=== PATIENT | female | born 1980 | race Caucasian/White ===

== ENCOUNTER 2016-08-01 19:30 | Emergency (ER) | payer OTHER ==
[~2016-08-01] VITALS: Ht 154.9 cm; Wt 51.0 kg
[~2016-08-01 19:30] MED LIST: HYDR-3533 PO; MOTR200T PO; TRAM50 PO
[2016-08-01 19:31] VITALS: BP 155/80; PULSE 88; RESP 16; TEMP 98; O2SAT 99
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
[2016-08-01] MEDS ORDERED: ZOFR4TAB PO (23:53)
[2016-08-24] MEDS ORDERED: IBUP-232 PO (11:52)
[2016-08-24] MEDS ORDERED: TRAM50TA PO (11:52)
[2016-08-24] MEDS ORDERED: ONE-TAB PO (11:53)
[2016-08-24] MEDS ORDERED: DESOTAB7 PO (11:56)
[2016-08-27] MEDS ORDERED: HYDR-3533 PO (10:05)
[2016-10-30] MEDS ORDERED: IBUP-232 PO (10:31)
== END 2016-08-02 00:07 | disposition home or self-care (01) ==
LOC: NEPB 19:30
DX: S16.1XXA Strain of muscle, fascia and tendon at neck level, initial encounter (principal); S39.012A Strain of muscle, fascia and tendon of lower back, initial encounter; E04.2 Nontoxic multinodular goiter; M50.20 Other cervical disc displacement, unspecified cervical region; V43.52XA Car driver injured in collision with other type car in traffic accident, initial encounter
CPT/HCPCS: 72125

== ENCOUNTER → 2016-08-24 | Outpatient (CLI) | payer OTHER ==
[~2016-08-24] MED LIST changes: +DESOTAB7 PO; +HYDR-3583 PO; +IBUP-232 PO; +ONE-TAB PO; +TRAM50TA PO; +ZOFR4TAB PO
[2016-08-24 12:46] LABS: AUTOMATED NEUTROPHIL # 3.9 TH/MM3 (1.8-7.7); BASOPHIL % 0.5 % (0.0-2.0); EOSINOPHIL # 0.1 TH/MM3 (0-0.4); EOSINOPHIL % 2.3 % (0.0-4.0); HEMATOCRIT 40.2 % (35.0-46.0); HEMO FLAGS DIFF FINAL; LYMPH % 22.3 % (9.0-44.0); LYMPHOCYTE # 1.3 TH/MM3 (1.0-4.8); MEAN CELL VOLUME 88.5 FL (80.0-100.0); MEAN CORPUSCULAR HEMOGLOBIN 29.4 PG (27.0-34.0); MEAN CORPUSCULAR HGB CONC 33.2 % (32.0-36.0); MONO % 5.6 % (0.0-8.0); NEUT % 69.3 % (16.0-70.0); PLATELET COUNT 183 TH/MM3 (150-450); RED BLOOD COUNT 4.54 MIL/MM3 (4.00-5.30); WHITE BLOOD COUNT 5.6 TH/MM3 (4.0-11.0)
[2016-08-24 12:55] LABS: APTT (PATIENT) 27.6 SEC (24.3-30.1); INTERNATIONAL NORMALIZED RATIO 0.9 RATIO; PROTHROMBIN TIME - PATIENT 9.7 SEC (9.8-11.6)
[2016-08-24 13:05] LABS: BACTERIA, URINE RARE /hpf; BLOOD, URINE TRACE (NEG); COMMENT (UR) CULT NOT INDICATED; CULTURE IF INDICATED CULT NOT INDICATED; GLUCOSE,URINE NEG (NEG); KETONE, URINE NEG (NEG); NITRITE,URINE NEG (NEG); SQUAMOUS EPITHELIAL CELL URINE 3 /hpf (0-5); URINE COLOR YELLOW (YELLW/STRAW)
[2016-08-24 13:17] LABS: ANION GAP 7 MEQ/L (5-15); AST (GOT) 13 U/L (15-37); BICARBONATE 29.1 MEQ/L (21.0-32.0); BLOOD UREA NITROGEN 15 MG/DL (7-18); CHLORIDE 102 MEQ/L (98-107); GLOMERULAR FILTRATION RATE 100 ML/MIN (>89); GLUCOSE,FASTING 73 MG/DL (74-99); POTASSIUM 3.9 MEQ/L (3.5-5.1); SODIUM (NA) 138 MEQ/L (136-145)
[2016-08-24 13:20] LABS: ALKALINE PHOSPHATASE 55 U/L (45-117); ALT (GPT) 17 U/L (10-53); TOTAL BILIRUBIN ADULT 0.4 MG/DL (0.2-1.0)
--- NOTE | 2016-08-24 13:33 | RADRPT ---
EXAM DATE/TIME: 08/24/2016 12:42 [facility] COMPARISON: No previous studies available for comparison. INDICATIONS : Evaluate for pneumonia, pneumothorax, or communicable disease. Pre-op, cervical spine fusion. MEDICAL HISTORY : None. SURGICAL HISTORY : None. ENCOUNTER: Initial ACUITY: 1 day PAIN SCORE: 0/10 LOCATION: Bilateral chest FINDINGS: PA and lateral views of the chest demonstrate the lungs to be symmetrically aerated without evidence of mass, infiltrate or effusion. The cardiomediastinal contours are unremarkable. Osseous structure s are intact. CONCLUSION: No acute disease. Jeremiah Zhao MD FACR on August 24, 2016 at 13:32 Board Certified Radiologist. This report was verified electronically.
--- NOTE | 2016-08-25 13:01 | EKG ---
Date Performed: 08/24/2016 Time Performed: 11:44:27 PTAGE: 35 years EKG: SINUS BRADYCARDIA WITH SHORT [place] INTERVAL POSSIBLE LEFT ATRIAL ENLARGEMENT POSSIBLE RIGHT VE NTRICULAR CONDUCTION DELAY BORDERLINE ECG NO PREVIOUS TRACING DOCTOR: Darius Cary Interpretating Date/Time 08/25/2016 12:58:48
== END ==
LOC: CPRE 11:20
PROVIDERS: ATTEND Neurological Surgery
DX: Z01.810 Encounter for preprocedural cardiovascular examination (principal); Z01.811 Encounter for preprocedural respiratory examination; Z01.812 Encounter for preprocedural laboratory examination; Z01.818 Encounter for other preprocedural examination; Z79.01 Long term (current) use of anticoagulants
CPT/HCPCS: 36415; 71020; 80053; 81001; 85025; 85610; 85730; 93005

== ENCOUNTER 2016-08-31 06:44 | Observation (INO) | payer OTHER ==
[~2016-08-31] VITALS: Ht 154.9 cm; Wt 32.5 kg
[~2016-08-31 06:44] MED LIST changes: -HYDR-3583 PO; -MOTR200T PO; -TRAM50 PO
[2016-08-31] MEDS ORDERED: ceFAZolin 2 GM PREMIX 50 ML ONE (07:22)
[2016-08-31] MEDS ORDERED: MICROFIBRILLAR COLLAGEN HEMOSTAT 70 X 35 MM BANDAGE ONE (07:22)
[2016-08-31] MEDS ORDERED: THROMBIN (TOPICAL) 5,000 UNIT VIAL ONE (07:22)
[2016-08-31] MEDS ORDERED: VANCOMYCIN HCL 1000 MG VIAL ONE (07:22)
[2016-08-31] MEDS ORDERED: SODIUM CHLOR 0.9% 250 ML INJ 250 ML ONE (07:23)
[2016-08-31] MEDS ORDERED: GELFOAM SIZE 100 ONE (07:23)
[2016-08-31] MEDS ORDERED: GENTAMICIN SULFATE 80 MG/2 ML VIAL ONE (07:23)
[2016-08-31 07:45] VITALS: BP 121/86; PULSE 75; RESP 16; TEMP 98.3; O2SAT 97
[2016-08-31] MEDS ORDERED: ARTIFICIAL TEARS OPTH OINT 3.5 APPLIC/3.5 GM TUBO ONE (08:07)
[2016-08-31] MEDS ORDERED: fentaNYL CITRATE 250 MCG/5 ML AMP ONE (08:07)
[2016-08-31] MEDS ORDERED: ACETAMINOPHEN 1000 MG/100 ML VIAL IV ONE (08:07)
[2016-08-31] MEDS ORDERED: MIDAZOLAM HCL 2 MG/2 ML VIAL ONE (08:08)
[2016-08-31] MEDS ORDERED: METOPROLOL TARTRATE 25 MG TAB PO PRN (09:15)
[2016-08-31] MEDS: LACTATED RINGER'S 1000 ML IV SCH (09:15)
[2016-08-31] MEDS: SODIUM CHLORID 0.9% 500 ML IV SCH ×2 (09:15→19:33)
[2016-08-31] MEDS ORDERED: INSULIN HUMAN REGULAR 1,000 UNITS/10 ML VIAL SQ PRN (09:15)
[2016-08-31] MEDS ORDERED: NEOSTIGMINE 3 MG/3 ML SYR IV ONE (09:33)
[2016-08-31] MEDS ORDERED: PROPOFOL 200 MG/20 ML AMP IV ONE (09:33)
[2016-08-31] MEDS ORDERED: ONDANSETRON HCL 4 MG/2 ML VIAL IV PUSH ONE (09:33)
[2016-08-31] MEDS ORDERED: LACTATED RINGER'S 1000 ML INJ 1,000 ML IV ONE (09:33)
[2016-08-31] MEDS ORDERED: DO NOT ADM ANY ANTICOAGULANT DRUGS XX PRN (11:00)
[2016-08-31] MEDS ORDERED: *morphine SULFATE 8 MG/ML PERIprocedure ONLY ONE ×2 (11:08→11:37)
[2016-08-31] MEDS ORDERED: CYCLOBENZAPRINE HCL 10 MG TAB PO PRN (11:15)
[2016-08-31] MEDS ORDERED: SODIUM CHLORIDE 0.9% FLUSH 5 ML FLUSH IVF PRN (11:15)
--- NOTE | 2016-08-31 11:35 | PD.OP ---
Operative Report Date of Surgery: Aug 31, 2016 Preoperative Diagnosis: C5-6 cervical disk herniation Postoperative Diagnosis: C5-6 cervical disk herniation Procedure: C5-6 anterior cervical discectomy and arthroplasty using Mobi C Anesthesia: general Surgeon: Gerson Goldman Oncology Physician(s): Becca Zavala Operation and Findings: INDICATIONS FOR THE PROCEDURE Ms Butler is a 35 year-old who presented with intractable neck pain and a C6 cervical radiculopathy. She was found to have a large disc herniation at C5-6, causing significant mass effect on the nerve root. She has failed multiple modalities of nonsurgical treatment and has a very poor quality of life and her symptoms were affecting her quality of life. An anterior cervical discectomy and arthroplasty were indicated. The [id number] details of the surgical procedure, indications, alternatives, risks and potential complications were fully discussed with the patient. The patient fully understood. All her questions were answered. No guarantees were given. She voiced requesting the procedure and signed informed consents. She was offered the alternative of delaying the procedure and continuing with nonsurgical management. DETAILS OF THE SURGICAL PROCEDURE SURGICAL APPROACH A skin incision was made along the middle cervical crease with a #10 blade. The dissection was carried out through the platysma exposing the sternocleidomastoid muscle. The cervical spine was approached following the fascial layers of the neck, just medial to the anterior border of the sternocleidomastoid and carotid sheath by a combination of sharp and dull dissection. The omohyoid muscle was identified and carefully dissected laterally and the deep cervical fascia was carefully opened. The longus colli muscles were retracted to each side of the midline. A marker was placed at the C5-6 disc space and a cross-table lateral x-ray performed with a C-arm. An AP xray was then obtained as well, and the midline of the disk space was defined. SURGICAL DECOMPRESSION In order to decompress the anterior surface of the spinal cord it was necessary to perform a microsurgical resection of the disk. At this point in the procedure the operating microscope was draped in the usual sterile fashion and brought to the field. The rest of the surgical procedure was performed using microdissection technique with the exception of the closure. Under the operative microscopic a self-retaining retractor was placed underneath the longus colli muscle. The annulus at C5-6 was incised with a #15 blade and microdiscectomy was then carefully carried out using angled curets and pituitary forceps. The patient had a large disk extrusion which was producing mass affect on the exiting nerve root. This was carefully dissected with a nerve hock and resected with a think foot plate 2 mm Kerrison under high magnification. The posterior longitudinal ligament was then elevated with an angled curet and incised with a 15 bladed knife. A careful resection of the posterior longitudinal ligament was carried out using a thin footplate 2 mm Kerrison. Extruded disk fragments causing mechanical compression were carefully dissected. The decompression was then carried out laterally, and a bilateral foraminotomy was performed with a 2 mm thin foot Kerrison. The epidural space was the systematically assessed with a nerve hook in search for disk fragments. An excellent decompression was achieved in both, the dural sac and bilateral exiting nerve roots. The incision was then irrigated with a large amount of antibiotic solution INTERBODY ARTHROPLASTY In order to avoid collapse of the disk space which would result in bilateral foraminal stenosis, and in order to maintain disk space height and function minimally development of adjacent level degeneration, it was necessary to place an interbody device. At this point of the procedure, gentle distraction was applied. The size of the interbody device was then assessed using a trial, and a cross table xray was done for confirmation of appropriate size and position of the device. Then the disk space was irrigated with antibiotic solution, and a 15mm by 6mm Mobi C artificial disk was carefully impacted into the disc space C5-6. An excellent position of the device was achieved. This was confirmed anatomically by feeling the space posterior to the implant and distance to the anterior surface of the dural sac. Radiological confirmation of the position was performed with a cross table AP and lateral X-ray views, performed with the C-arm. COMPLETION OF THE SURGICAL PROCEDURE Once that each interbody device was in an appropriate position, the distraction was discontinued. The position of the device as well as alignment of the spine were assessed anatomically by direct visualization, and radiologically by performing an AP and lateral X-ray of the cervical spine with the C-arm. The position of the implant was excellent. The incision was irrigated with several liters of antibiotic solution. Hemostasis was achieved with a bipolar. A 7 mm Swapnil-Post drain was left in the prevertebral space and externalized through a separate stab incision. The incision was then closed in layers. 3-0 Vicryl with interrupted sutures was used to close the platysma and subcutaneous tissue. The skin was closed with 4- 0 running subcuticular Vicryl and Dermabond was applied to the skin. The drain was secured with a 3-0 nylon. At the end of the procedure the sponge, needle and instrument counts were all correct. The estimated blood loss was less than 40-50 cc. No blood transfusion was given. No intraoperative complications occurred. The patient received prophylactic antibiotics. The patient was then extubated and transferred to the recovery room in stable condition. Gerson Goldman MD Aug 31, 2016 11:35
[2016-08-31] MEDS ORDERED: HYDR-3583 PO (11:36)
[2016-08-31] MEDS: NS + KCL 20 MEQ INJ 1,000 ML IV SCH (11:49)
[2016-08-31] MEDS: DEXAMETHASONE SOD PHOS 4 MG/ML VIAL IV SCH ×2 (11:49→17:15)
[2016-08-31] MEDS ORDERED: ACETAMINOPHEN/HYDROcodone 325 MG/10 MG TAB PO PRN (12:00)
[2016-08-31] MEDS ORDERED: IBUPROFEN 600 MG TAB PO PRN (12:00)
[2016-08-31] MEDS ORDERED: ACETAMINOPHEN 325 MG TAB PO PRN (12:00)
[2016-08-31] MEDS ORDERED: BISACODYL 10 MG SUPP PR PRN (12:00)
[2016-08-31] MEDS ORDERED: ONDANSETRON HCL 4 MG/2 ML VIAL IV PRN (12:00)
[2016-08-31] MEDS ORDERED: MORPHINE SULFATE 4 MG/ML INJ IV PUSH PRN ×2 (12:00)
--- NOTE | 2016-08-31 13:00 | HHI.DCPOC ---
Discharge Care Plan Diagnosis: (1) S/P cervical discectomy Goals to Promote Your Health * To prevent worsening of your condition and complications * To maintain your health at the optimal level Directions to Meet Your Goals Take your medications as prescribed Follow your dietary instruction Follow activity as directed Keep your appointments as scheduled Take your immunizations and boosters as scheduled If your symptoms worsen call your PCP, if no PCP go to Urgent Care Center or Emergency Room Smoking is Dangerous to Your Health. Avoid second hand smoke Call the 24-hour hour crisis hotline for domestic abuse at Norma Holland Aug 31, 2016 13:00
[2016-08-31 13:30] VITALS: BP 120/87; PULSE 94; RESP 16; TEMP 97.8; O2SAT 99
[2016-08-31 14:25] VITALS: O2SAT 97
[2016-08-31] MEDS: ACETAMINOPHEN/HYDROcodone 325 MG/10 MG TAB PO PRN ×2 (14:29→20:16)
--- NOTE | 2016-08-31 15:39 | RADRPT ---
EXAM DATE/TIME: 08/31/2016 08:30 [facility] COMPARISON: No previous studies available for comparison. INDICATIONS: Herniated disk anterior artificial disk. MEDICAL HISTORY: Herniated disk SURGICAL HISTORY: None. ENCOUNTER: Initial ACUITY: 1 day PAIN SCORE: 0/10 LOCATION: C-spine FINDINGS: The patient is status post anterior cervical fusion at C5-C6 with artificial disk. Alignment is denis omic. CONCLUSION: Anatomic alignment at C5-6. Jeremiah Zhao MD FACR on August 31, 2016 at 15:30 Board Certified Radiologist. This report was verified electronically.
[2016-08-31] MEDS: ceFAZolin 2 GM PREMIX 50 ML IV SCH (17:15)
[2016-08-31 19:02] VITALS: O2SAT 97
[2016-08-31] MEDS: SODIUM CHLORIDE 0.9% FLUSH 5 ML FLUSH IVF SCH (20:15)
[2016-08-31] MEDS: DOCUSATE SODIUM 100 MG CAP PO SCH (20:15)
[2016-08-31] MEDS: MENTHOL LOZENGE SUCK-ON PRN (20:16)
[2016-08-31 20:37] VITALS: BP 135/81; PULSE 88; RESP 18; TEMP 98.4; O2SAT 96
[2016-09-01 00:16] VITALS: BP 110/63; PULSE 75; RESP 18; TEMP 98; O2SAT 97
[2016-09-01] MEDS: ceFAZolin 2 GM PREMIX 50 ML IV SCH ×2 (00:46→10:53)
[2016-09-01] MEDS: NS + KCL 20 MEQ INJ 1,000 ML IV SCH (00:47)
[2016-09-01] MEDS: DEXAMETHASONE SOD PHOS 4 MG/ML VIAL IV SCH ×3 (00:47→11:00)
[2016-09-01] MEDS: ACETAMINOPHEN/HYDROcodone 325 MG/10 MG TAB PO PRN (05:31)
[2016-09-01 08:00] VITALS: BP 135/78; PULSE 79; RESP 18; TEMP 98.1; O2SAT 96
[2016-09-01] MEDS ORDERED: PANTOPRAZOLE SOD 40 MG DELAYED RELEASE TAB PO SCH (09:00)
[2016-09-01] MEDS ORDERED: DESOGESTREL ETHINYL ESTRADIOL PO SCH (09:00)
[2016-09-01] MEDS: LACTATED RINGER'S 1000 ML IV SCH (09:15)
--- NOTE | 2016-09-01 09:58 | HHI.NSPN ---
History Chief Complaint: Incisional discomfort, but controlled. Interval History 09/01/16: Pt underwent C5-6 anterior cervical discectomy and arthroplasty using Mobi C on 08/31/16. Pt awake and alert. States doing well. Mild right shoulder discomfort. No radiculopathy in UEs or paresthesias in UEs. Tolerating diet well. Ambulating. Voiding well. Review of Systems General: Negative for: fever, chills, insomnia Respiratory: Negative for: shortness of breath, cough, sputum Cardiovascular: Negative for: chest pain Gastrointestinal: Negative for: nausea, vomitting, diarrhea, constipation Exam Results Vital Signs Date Time Temp Pulse Resp B/P Pulse Ox O2 Delivery O2 Flow Rate FiO2 09/01/16 08:00 98.1 79 18 135/78 96 08/31/16 19:16 Room Air 08/31/16 19:02 21 Intake and Output 08/31/16 08/31/16 08/31/16 07:59 15:59 23:59 Intake Total 1100 ml 1430 ml Output Total 920 ml Balance 180 ml 1430 ml Physical Examination Resp: CTA bilaterally Heart: NSR no murmurs Abd: Soft positive bs Skin: Incision clean and dry. New bandage in place. Muscle: Moves all 4 extremities with good strength. Neuro: Pt awake and alert. Follows commands well. Speech clear and appropriate. Lab, Micro, Other Results 08/31/16 08/31/16 09/01/16 14:59 22:59 06:59 Intake Total 1100 ml 1430 ml 1339 ml Output Total 920 ml Balance 180 ml 1430 ml 1339 ml Intake Oral 800 ml 800 ml IV Total 630 ml 539 ml Other 1100 ml Output Urine Total 200 ml Estimated Blood Loss 20 ml Other 700 ml # Voids 1 4 5 # Bowel Movements 0 0 Medical Decision Making Impression and Plan A: 35 y/o FM s/p C5-6 anterior cervical discectomy and arthroplasty using Mobi C on 08/31/16. P: Pt doing well postop and ready to go home today Discussed restrictions follow up with Dr. Goldman as instructed. Darrin Hill Sep 01, 2016 09:57
[2016-09-01] MEDS: DOCUSATE SODIUM 100 MG CAP PO SCH (10:52)
[2016-09-01] MEDS: MENTHOL LOZENGE SUCK-ON PRN (11:00)
[2016-09-01] MEDS: SODIUM CHLORIDE 0.9% FLUSH 5 ML FLUSH IVF SCH (11:03)
[2016-09-01 12:00] VITALS: BP 133/80; PULSE 91; RESP 18; TEMP 97.8; O2SAT 97
--- NOTE | 2016-09-03 11:04 | HHI.DS ---
Discharge Summary Admission Date Aug 31, 2016 at 11:32 Discharge Date: Sep 01, 2016 Admitting Diagnosis s/p cervical discectomy and arthroplasty (1) S/P cervical discectomy ICD Code: Z98.890 Brief History Ms Butler is a 35 year-old who presented with intractable neck pain and a C6 cervical radiculopathy. She was found to have a large disc herniation at C5-6, causing significant mass effect on the nerve root. She has failed multiple modalities of nonsurgical treatment and has a very poor quality of life and her symptoms were affecting her quality of life. An anterior cervical discectomy and arthroplasty were indicated. Imaging Last Impressions Cervical Spine X-Ray 08/31/16 0000 Signed Impressions: Service Date/Time: Wednesday, August 31, 2016 08:30 - CONCLUSION: Anatomic alignment at C5-6. Jeremiah Zhao MD [facility] Hospital Course Ms. Butler underwent a C5-6 anterior cervical discectomy and arthroplasty using Mobi C on Aug 31, 2016. Her surgery went well without complications. She remained in stable conditions and discharged home. Pt Condition on Discharge: Stable Discharge Disposition: Discharge Home Discharge Instructions DIET: Follow Instructions for: Heart Healthy Diet ADDITIONAL Diet Instructions: soft foods and advance as tolerated ACTIVITIES You can perform: Weight Bearing [place] ADDITIONAL Activity Instructio: Avoid strenuous activities, heavy lifting, overhead activities, repetitive bending, twisting, pushing, pulling or any activities which might result in stress over the spine. Avoid situtation that will put at risk for falls. Use assistive device as needed for walking. Wear cervical collar at all times, may remove only with meals. New Medications: Hydrocodone-Acetaminophen (Hydrocodone-Acetaminophen) 10-325 mg Tab 1 TAB PO Q8HR PRN PAIN SCALE 1 TO 10 #90 Ref 0 TAB Continued Medications: Desogestrel-Ethinyl Estradiol (Enskyce) 0.15-30 Mg-Mcg Tab 1 TAB PO DAILY Control #28 Ref 0 TAB Hydrocodone-Acetaminophen (Lortab) 5-325 Mg Tab 1 TAB PO Q8HR PRN PAIN #90 Ref 0 TAB Ibuprofen (Ibuprofen) 600 Mg Tab 600 MG PO Q6H PRN PAIN SCALE 1 TO 7 Ref 0 TAB Norma Holland Sep 03, 2016 11:04
[2016-10-30] MEDS ORDERED: IBUP-232 PO (10:31)
== END 2016-09-01 14:22 | disposition home or self-care (01) ==
LOC: HSDC 06:44 → EDSTATUS 11:00 → HSDI 11:12 → UNDOADMIN 11:12 → INTOOBSV 11:32 → HSDI 11:32 → N06B 13:19 → UNDODISIN 09-01 14:22
PROVIDERS: ADMIT Neurological Surgery; ATTEND Neurological Surgery
DX: M50.122 Cervical disc disorder at C5-C6 level with radiculopathy (principal)
CPT/HCPCS: 00600; 22856; 72040; 76000; 94150; 97162; C1713; G0378; J0131; J0690; J1100; J1580; J2250; J2270; J2405; J2710; J3010; J3370; J3480; J7050; J7120; L0150; L0172